=== PATIENT | female | born 2005 | race Caucasian/White ===

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

== ENCOUNTER 2024-08-20 18:54 | Outpatient (REF) | payer BC, SELFPAY | END 2024-08-20 18:55 | disposition home or self-care (01) | LOC: LBN 18:54 | PROVIDERS: PCP Nurse Practitioner Family; Visit Provider Nurse Practitioner Family | DX: J02.9 Acute pharyngitis, unspecified (principal) | CPT/HCPCS: 87070 ==

== ENCOUNTER 2024-12-19 15:48 | Outpatient (REF) | payer BC, SELFPAY ==
--- NOTE | 2024-12-19 15:30 | PAPFT_PTH ---
PATIENT: Annette Mariano LOC: [facility] U#:[id number] AGE/SX: 19/F ROOM: RE12/19/[address]: Cee Richards NP : 2005 BED: DIS: 12/19/2024 SPEC #: [id number] RECD: 12/20/24 13:01 STATUS: RUBIO REMichael #: [id number] MADI: 12/19/24 15:[address]: Maurice BEAR,Cee DEPT: [facility] Cytology RECD BY: Princess Lopes ENTERED: 12/20/24 13:02 SP TYPE: PAPFT OTHR DR: Farzaneh Mack NP Tissues: 1 - CX/ENDOCX FOR PAP SMEARS Procedures: PAP THIN PREP/[facility] Screening Comments: [id number] (CHLAMYDIA/GC)
[2024-12-21 11:06] LABS: Chlamydia Result Negative (Negative); GC Result Negative (Negative)
== END 2024-12-19 15:49 | disposition home or self-care (01) ==
LOC: LBN 15:48
PROVIDERS: PCP Nurse Practitioner Family; Visit Provider Nurse Practitioner Women's Health
DX: Z12.4 Encounter for screening for malignant neoplasm of cervix (principal)
CPT/HCPCS: 87491; 87591; 88142

== ENCOUNTER 2025-05-21 08:25 | Outpatient (CLI) | payer BC, SELFPAY ==
[2025-05-21 13:55] LABS: HCT 39.0 % (36.0-46.0); HGB 12.8 g/dL (11.2-15.7); MCH 28.3 pg (27.0-33.0); MCHC 32.8 % (32.0-36.0); MCV 86 fL (80-95); MPV 10.7 fL (8.0-11.0); Platelet Count 224 10^3/uL (130-400); RBC 4.53 10^6/uL (3.93-5.22); RDW 13.2 % (11.7-14.6); RDW-SD 41.0 fL; WBC 6.95 10^3/uL (4.4-10.8)
[2025-05-21 14:39] LABS: ALT 31 U/L (14-59); AST 16 U/L (15-37); Albumin 3.4 g/dL (3.4-5.0); Alkaline Phosphatase 58 U/L (46-116); Anion Gap 9.1 mmol/L (3-11); BUN 7 mg/dL (7-18); Bilirubin, Total 0.2 mg/dL (0.2-1.0); CO2 25.9 mmol/L (21.0-32.0); Calcium 9.5 mg/dL (8.5-10.1); Calculated LDL 99 mg/dL (<100); Chloride 106 mmol/L (98-107); Cholesterol 178 mg/dL (<200); Estimated GFR 130.88 (mL/min/1.73m2); Glucose 100 mg/dL (74-106); HDL Cholesterol 54 mg/dL (>or=50); Potassium 3.8 mmol/L (3.5-5.1); Sodium 141 mmol/L (136-145); TSH (W/Ref FT4) 1.21 uIU/mL (0.36-3.74); Total Protein 7.3 g/dL (6.4-8.2); Triglyceride 128 mg/dL (<150)
[2025-05-22 14:51] LABS: Hemoglobin A1C 5.2 % (<5.7)
== END 2025-05-21 08:26 | disposition home or self-care (01) ==
LOC: LOS 08:25
PROVIDERS: PCP Nurse Practitioner Family; Referring Provider Nurse Practitioner Family; Visit Provider Nurse Practitioner Family
DX: Z00.00 Encounter for general adult medical examination without abnormal findings (principal); I10 Essential (primary) hypertension; J45.909 Unspecified asthma, uncomplicated; F41.9 Anxiety disorder, unspecified
CPT/HCPCS: 36415; 80053; 80061; 85027; 83036; 84443